=== PATIENT | male | born 1975 | race Caucasian/White ===

== ENCOUNTER 2021-06-21 12:27 | Outpatient (CLI) | payer OTHER, SELFPAY ==
[2021-06-21 14:50] LABS: SARS-CoV-2 RNA PCR Negative (Negative)
== END 2021-06-21 12:28 | disposition home or self-care (01) ==
LOC: CHSLAB 12:34
PROVIDERS: PCP Family Medicine; Visit Provider Family Medicine
DX: J00 Acute nasopharyngitis [common cold] (principal); Z20.822 Contact with and (suspected) exposure to COVID-19
CPT/HCPCS: C9803; U0003; U0005

== ENCOUNTER 2022-08-28 06:32 | Day surgery (SDC) | payer OTHER, SELFPAY ==
[2022-06-21 13:50] VITALS: BMI 32.3
[2022-08-14 14:34] VITALS: BMI 32.1
[2022-08-28 07:07] VITALS: BP 124/94; PULSE 72; RESP 20; TEMP 36.6; O2SAT 98
[2022-08-28] MEDS: LACTATED RINGERS 1,000 ML 150 ML IV CONT (07:23)
--- NOTE | 2022-08-28 07:35 | PM.HPGS ---
History of Present Illness History of Present Illness Consent: Risks, benefits, and alternatives have been discussed and questions answered. Patient agrees to proceed with procedure. Chief complaint: Gerd and Neoplasm Screening Narrative: Irvin Mayen is a 46 year old male Presents for colonoscopy and EGD. Patient has chronic GE reflux disease. Currently on omeprazole 40mg p.o. b.i.d.. Despite this he continues to have symptoms if he does not remain on a diet. He eats too much she sometimes will regurgitate. Occasionally has heartburn with fried foods. Patient presents today for follow-up EGD because of acid reflux with minimal disruption of his diet. Patient denies any dysphagia, no bleeding. No weight loss. Patient also presents for colonoscopy. He states his current weight appetite bowel movements are normal he has never previously had colonoscopy. Family history noncontributory. [facility] Past Medical History Medical History (Updated 05/25/22 @ 09:06 by Mary Denny APN-Thien) Encounter for screening colonoscopy GERD (gastroesophageal reflux disease) Obese Tonsillar and adenoid hypertrophy Surgical History Surgical History (Updated 05/25/22 @ 08:55 by Leoncio Faulkner) H/O cardiac radiofrequency ablation History of knee surgery Social History Social History Smoking status: Never smoker Alcohol intake: unknown Substance use type: does not use Living arrangements: with family Spiritual care concerns: No Meds Home Medications and Allergies Home Medications Medication Instructions Recorded Confirmed Type omeprazole 40 mg capsule,delayed 40 mg PO BID 05/25/22 08/28/22 History release sodium,potassium,mag sulfates 17.5 See Rx Instructions PO .COMPLEX 06/21/22 08/28/22 Rx gram-3.13 gram-1.6 gram oral soln #354 mL (Suprep Bowel Prep Kit) Allergies Allergy/AdvReac Type Severity Reaction Status Date / Time No Known Allergies Allergy Verified 08/28/22 07:10 Vital Signs Vital Signs - 24 hr 08/28/22 07:07 Temperature 97.9 F Pulse Rate 72 Respiratory Rate 20 Blood Pressure 124/94 H Pulse Oximetry 98 Oxygen Delivery Room Air Exam Narrative: Physical exam reveals patient to be alert. Vital signs stable. HEENT exam is unremarkable. Patient is anicteric. Lungs are clear to auscultation and percussion. Heart is without murmur or extra sounds. Abdomen bowel sounds present soft nontender with no organomegaly. Digital external rectal exam normal. Assessment and Plan Assessment and plan (1) GERD (gastroesophageal reflux disease): Code(s): K21.9 - Gastro-esophageal reflux disease without esophagitis Status: Acute Assessment and Plan: Patient with chronic GE reflux disease. Patient notices symptoms occurred despite being on medications if he strays from his diet. Plan to continue strict anti-reflux measures continuing omeprazole 40mg p.o. b.i.d.. An EGD will be performed. We had a discussion regarding possible anti-reflux surgery if symptoms persist. Further recommendations may be given after endoscopy. (2) Encounter for screening colonoscopy: Code(s): Z12.11 - Encounter for screening for malignant neoplasm of colon Status: Acute Assessment and Plan: Patient presents for neoplasia screening colonoscopy. Appears to be at average risk for colon polyps. Further recommendations may be given after endoscopy.
--- NOTE | 2022-08-28 07:41 | WPDANESEPPF ---
Anes - Initial Pre Proc Eval Procedure: Operation Date: 08/28/22 08:30 Proposed Procedures p Esophagogastroduodenoscopy - Rasta Crain MD s Screening Colonoscopy - Rasta Crain MD Date/Time: 08/28/22 07:41 Surgeon: Rasta Crain MD Pre Op Diagnosis: Gerd and Neoplasm Screening Patient Data Age: 46 Gender: M Height: 1.8 m Weight: 103 kg Last Vital Signs Temp 36.6 C 08/28/22 07:07 Pulse 72 08/28/22 07:07 Resp 20 08/28/22 07:07 BP 124/94 H 08/28/22 07:07 Pulse Ox 98 08/28/22 07:07 O2 Del Method Room Air 08/28/22 07:07 Allergies Allergy/AdvReac Type Severity Reaction Status Date / Time No Known Allergies Allergy Verified 08/28/22 07:10 Home Medications Medication Instructions Recorded Confirmed Type omeprazole 40 mg capsule,delayed 40 mg PO BID 05/25/22 08/28/22 History release sodium,potassium,mag sulfates 17.5 See Rx Instructions PO .COMPLEX 06/21/22 08/28/22 Rx gram-3.13 gram-1.6 gram oral soln #354 mL (Suprep Bowel Prep Kit) Patient hx anesthesia problems: none Family hx anesthesia problems: none Results Review: All pre-operative results and documents have been reviewed as part of the pre-operative evaluation. [facility] Past Medical History Medical History Encounter for screening colonoscopy GERD (gastroesophageal reflux disease) Obese Tonsillar and adenoid hypertrophy Surgical History Surgical History H/O cardiac radiofrequency ablation History of knee surgery Social History Social History Smoking status: Never smoker Alcohol intake: unknown Substance use type: does not use Living arrangements: with family Spiritual care concerns: No Anes - Eval Final PreProcedure Day of Procedure 08/28/22 07:41 Patient weight: obese Heart: regular rate and rhythm Lungs: clear to auscultation Airway: Mallampati scale class II Neurological: alert and oriented Last oral intake: >/= 8 hours ASA classification: II Emergent: no Anesthetic plan: proceed Anesthesia type and monitoring: general GIVS and standard monitoring Results Review: All pre-operative results and documents have been reviewed as part of the pre-operative evaluation. Informed Consent: The patient's anesthetic plan and its attendant risks and benefits were discussed with the patient/family/POA. Questions were solicited and answers provided to the satisfaction of the patient/family/POA.
[2022-08-28 08:44] VITALS: BP 90/59; PULSE 94; RESP 16; O2SAT 95
--- NOTE | 2022-08-28 08:50 | WPDANESPN ---
Anes - Prog Note Post-Op Date/Time: 08/28/22 08:50 Cardiovascular status: normal Respiratory status: normal Airway patency: baseline Mental status: baseline Post-Op hydration status: normal Vital Signs: Last Vital Signs Temp 36.6 C 08/28/22 07:07 Pulse 72 08/28/22 07:07 Resp 20 08/28/22 07:07 BP 124/94 H 08/28/22 07:07 Pulse Ox 98 08/28/22 07:07 O2 Del Method Room Air 08/28/22 07:07 Pain Score (VAS): 0/10 I/O: Intake & Output 08/27/22 08/28/22 08/28/22 23:59 07:59 15:59 Intake Total 600 Balance 600 Patient Feedback: Patient satisfied with anesthetic care.
[2022-08-28 08:54] VITALS: BP 122/60; PULSE 83; RESP 16; O2SAT 95
[2022-08-28 09:04] VITALS: BP 101/63; PULSE 82; RESP 18; O2SAT 96
[2022-08-28 09:14] VITALS: BP 106/79; PULSE 75; RESP 18; O2SAT 96
--- NOTE | 2022-08-28 10:03 | SUR.PHASEII ---
0935 pt states he needs a few more mins before getting dressed.
== END 2022-08-28 09:47 | disposition home or self-care (01) ==
PROVIDERS: PCP Family Medicine; Visit Provider Internal Medicine Gastroenterology
PROC: 0DJ08ZZ Inspection of Upper Intestinal Tract, Via Natural or Artificial Opening Endoscopic (ICD-10-PCS; CPT 43235; principal; 2022-08-28 08:30)
PROC: 0DJD8ZZ Inspection of Lower Intestinal Tract, Via Natural or Artificial Opening Endoscopic (ICD-10-PCS; CPT 45378; 2022-08-28 08:30)
DX: Z12.11 Encounter for screening for malignant neoplasm of colon (principal)
CPT/HCPCS: 45385; 43239

== ENCOUNTER 2022-08-28 07:00 | Outpatient (NON) | payer OTHER, SELFPAY | END 2022-08-28 07:01 | disposition home or self-care (01) | LOC: ANHLAB 08-29 12:32 | PROVIDERS: PCP Family Medicine; Visit Provider Internal Medicine Gastroenterology | DX: Z12.11 Encounter for screening for malignant neoplasm of colon (principal) | CPT/HCPCS: 88305 ==

== ENCOUNTER 2022-10-24 11:57 | Outpatient (CLI) | payer OTHER, SELFPAY ==
--- NOTE | ~2022-10-24 | XR_ITS ---
Lumbosacral Spine: AP and lateral views Clinical History: Pain Findings: The normal lordotic curve is maintained. The vertebral bodies and posterior elements are i ntact. The intervertebral disc spaces are preserved. The sacroiliac joints are normally outlined. Impression: No significant abnormality. Reviewed, dictated and finalized at [facility]. ING MACHINE OPERATOR Impression: No significant abnormality.
--- NOTE | ~2022-10-24 | XR_ITS ---
AP and lateral views of the sacrum/coccyx CLINICAL HISTORY: Pain FINDINGS: No fracture or dislocation seen. Visualized joint spaces are intact. Soft tissues are unrem arkable. IMPRESSION: No significant abnormality identified. Reviewed, dictated and finalized at [facility]. MODEL
== END 2022-10-24 11:58 | disposition home or self-care (01) ==
LOC: CHSIMG 12:04
PROVIDERS: PCP Family Medicine; Visit Provider Family Medicine
DX: M53.3 Sacrococcygeal disorders, not elsewhere classified (principal); M54.50 Low back pain, unspecified
CPT/HCPCS: 72100; 72220

== ENCOUNTER 2022-12-04 08:51 | Outpatient (CLI) | payer OTHER, SELFPAY ==
--- NOTE | ~2022-12-04 | XR_ITS ---
EXAM: XR thoracic spine 3V DATE: 12/04/2022 09:17 HISTORY: fall times 1 week ago whole back pain prev lower back xray . COMPARISON: Chest x-ray 10/18/2011, x-ray lumbar spine 10/24/2022. FINDINGS: Vertebral body alignment intact. Vertebral body heights preserved. Multilevel disc space n arrowing and marginal osteophytosis including bridging lateral osteophytes. No traumatic malalignment or fracture. Visualized lung parenchyma is clear. IMPRESSION: No acute fracture or traumatic malalignment detected in the thoracic spine. Multilevel de generative disc disease. Reviewed, dictated and finalized at location [facility]. [facility] [employer] IMPRESSION: No acute fracture or traumatic malalignment detected in the thoraci c spine. Multilevel degenerative disc disease.
== END 2022-12-04 08:52 | disposition home or self-care (01) ==
LOC: CHSIMG 08:53
PROVIDERS: PCP Family Medicine; Visit Provider Family Medicine
DX: M54.9 Dorsalgia, unspecified (principal); M51.34 Other intervertebral disc degeneration, thoracic region
CPT/HCPCS: 72072

== ENCOUNTER 2025-02-19 07:43 | Outpatient (CLI) | payer OTHER, SELFPAY ==
--- NOTE | ~2025-02-19 | US_ITS ---
Limited Abdominal Sonogram: Real-time sonographic imaging of the right upper quadrant was performed. Clinical History: Right upper quadrant pain Findings: The liver appears echogenic, with no evidence of mass lesion or bile duct dilatation. Main portal vein demonstrates normal direction of flow. The gallbladder is moderately distended. There is a probable gallbladder fold or small amount of pericholecystic fluid, less likely gallbladder perfor ation. No gallbladder wall thickening. No evidence of stones or sludge. The common bile duct measures 7 mm. The visualized pancreas, aorta, and IVC are unremarkable. Impression: Diffuse fatty infiltration of the liver. Probable gallbladder fold or small amount of pericholecystic fluid. Less likely gallbladder perforati on. No gallbladder wall thickening, cholelithiasis, or gallbladder sludge. Consider MR/MRCP for furth er evaluation as indicated. Reviewed, dictated and finalized at [facility]. Impression: Diffuse fatty infiltration of the liver. Probable gallbladder fold or small amount of pericholecystic fluid. Less likely gallbladder perforation. No gallbladder wall thickening, cholelithiasis, or ga llbladder sludge. Consider MR/MRCP for further evaluation as indicated.
== END 2025-02-19 07:44 | disposition home or self-care (01) ==
LOC: CHSIMG 07:45
PROVIDERS: PCP Family Medicine; Visit Provider Family Medicine
DX: R10.11 Right upper quadrant pain (principal); K76.0 Fatty (change of) liver, not elsewhere classified
CPT/HCPCS: 76705

== ENCOUNTER 2025-03-19 06:44 | Outpatient (CLI) | payer OTHER, SELFPAY ==
--- NOTE | ~2025-03-19 | MR_ITS ---
MRI of the abdomen: Clinical indication: Cholecystitis. Technique: Coronal SSFSE ARC, WATER:coronal LAVA-FLEX, Coronal 2D FIESTA FatSat, Axial SSFSE BH ARC, Axial 3D DualEcho BH, Axial SSFSE-IR, Axial DWI b=500, Axial 2D FIESTA FatSat, pre and dynamic postco ntrast Axial LAVA ARC, postcontrast Coronal In and Opposed phase LAVA FLEX. Following intravenous adm inistration of 20 cc MultiHance gadolinium, T1-weighted fat-sat imaging was performed in the axial an d coronal planes. Findings: Gallbladder unremarkable. The common bile duct is normal in course and caliber. No filling defects are seen within the CBD. No evidence of intrahepatic biliary ductal dilatation. The pancreati c duct is normal in size. There is mild diffuse signal loss in the liver noted as well as images relative to in phase images, c ompatible diffuse fatty infiltration. Spleen, pancreas, adrenals, kidneys appear normal. The aorta an d the paraaortic regions appear normal. Moderate hiatal hernia present. Impression: Unremarkable gallbladder and biliary tree. Diffuse fatty infiltration of liver. Moderate hiatal hernia. Reviewed, dictated and finalized at location [facility]. Impression: Unremarkable gallbladder and biliary tree. Diffuse fatty infiltration of liver. Moderate hiatal hernia.
== END 2025-03-19 06:45 | disposition home or self-care (01) ==
LOC: CHSIMG 06:45
PROVIDERS: PCP Family Medicine; Visit Provider Family Medicine
DX: K81.9 Cholecystitis, unspecified (principal); K44.9 Diaphragmatic hernia without obstruction or gangrene; K76.0 Fatty (change of) liver, not elsewhere classified
CPT/HCPCS: 74183; 76376; A9577

== ENCOUNTER 2025-04-09 09:24 | Outpatient (CLI) | payer OTHER, SELFPAY ==
[2025-04-27 15:21] VITALS: BMI 29.0
--- NOTE | 2025-04-27 15:21 | P.SLEEP_ITS ---
Sleep Study - Home Unattended Date of Study: 04/09/25 Ordering Provider: Jose Haji DO Interpreting Provider: Georgiana Valderrama DO Home Sleep Study Type: Watch PAT Height: 1.8 m Weight: 94.347 kg Body Mass Index: 29.0 Neck Circumference (inches): 17.5 [place]: 5 Reason for Sleep Study Trouble falling and staying asleep Sleep History The patient is a 49-year-old male who had a sleep study ordered by his cardiol ogist for evaluation of sleep apnea. The patient admits to having trouble falling and staying asleep. He denies snoring loudly or experiencing interruptions in breathing while asleep. He does choke or gasp at night. He denies having trouble breathing on his back and denies morning headaches. He denies having a dry or sore mouth/throat in the morning. He does have nocturnal heartburn. He urinates twice throughout the night. He does have difficulty returning to sleep if he wakes up throughout the night. He denies any hypnotic or sedative use and denies feeling anxious about sleep. He does feel tired or sleepy during the day and feels tired in the morning. He denies having the urge to fall asleep during the day but does feel drowsy while driving. He denies sleep paralysis, cataplexy, and hypnagogic/hypnopompic hallucinations. He denies clenching or grinding his teeth. He denies kicking or jerking his legs excessively. He does have a restless feeling in his legs that causes an urge to move them. The restless feeling gets worse with rest but does not get better with activity. It only occurs in the evening or at nighttime and does not cause any distress. He goes to bed at 10:45 p.m. on workdays and at 11:30 p.m. on his days off. It takes him 2 hours to fall asleep. He gets 5.5 hours of sleep on workdays and 7.5 hours of sleep on his days off. His sleep is a little more restorative on days off. He denies taking any planned naps, dream enactment behavior, and sleepwalking. He consumes 1 to 2 cups of a caffeinated beverage per day. He denies tobacco and alcohol use. He denies exercising on a regular basis. [facility] Past Medical History Medical History Fatty liver Diarrhea RUQ pain Obese Encounter for screening colonoscopy GERD (gastroesophageal reflux disease) Tonsillar and adenoid hypertrophy Surgical History Surgical History H/O cardiac radiofrequency ablation History of knee surgery Social History Social History Smoking status: Never smoker Alcohol intake: unknown Substance use type: does not use Living arrangements: with family Spiritual care concerns: No Medications Home Medications ?Medication ?Instructions ?Recorded ?Confirmed ?Type omeprazole 40 mg capsule,delayed 40 mg PO BID 05/25/22 03/16/25 History release metformin 500 mg tablet 500 mg PO DAILY 03/16/25 03/16/25 History Sleep Procedure The sleep study was completed using [employer] a technically adequate device with seven channels: peripheral arterial tone, actigraphy, body position, snore, respiratory movement, pulse oximetry, sleep staging, and heart rate. Prior to using the device, the patient received verbal and written instructions for its application and was provided with the help desk phone number for additional telephonic instruction with 24-hour availability of qualified personnel to answer questions. The study was scored using AASM and CMS guidelines. Sleep Architecture The total recording time is 6 hrs, 17 min. The total sleep time is 4 hrs, 55 min. Sleep latency is 11 minutes. REM latency is 106 minutes. The patient had 10 episodes of waking. Sleep architecture shows 16.2% deep sleep, 62.6% light sleep, and (as % Total Sleep Time) showed NREM (Light 62.6%; Deep 16.2%), and a 21.1% stage REM. The patient spent 14.2% of total sleep time in the supine position. Sleep efficiency was 78.25. Respiratory Analysis The overall AHI (pAHI 4%:) is 2.7. The overall AHI (pAHI 3%:) is 7.7. The central AHI is 0.6. The AHI was 6.2 in NREM and 13.5 in REM sleep. The AHI was 20.3 in Supine and 5.7 in Non-supine sleep. Percent of Justin Waite respirations is 0.0. Oximetry Data The oxygen desaturation index (NAHUM 4%:) is 2.9. The mean saturation is 94%, and the lowest saturation is 87%. Time spent with saturation < 88% is 0.0 minutes. Snoring Profile Snoring average intensity is 42 dB. The patient snored above 45 decibels for 37.7 minutes, 12.8% of sleep time. Cardiac Profile The average pulse rate is 71 beats per minutes. The lowest pulse rate is 54 bpm. The highest pulse rate reported is 101 bpm. Atrial fibrillation was not detected. Premature beats occur <0.1 per minute. Assessment and Plan Assessment and Plan (1) FRANCES (obstructive sleep apnea): Code(s): G47.33 - Obstructive sleep apnea (adult) (pediatric) Status: Acute Assessment and Plan: Per AASM guidelines (3% criteria) the patient had an overall AHI of 7.7 with desaturation down to 87%. This is consistent with mild sleep apnea. Due to the patient's insomnia, he qualifies for treatment. I recommend that the patient be prescribed AutoPAP 5-15 cm H2O, CPAP mask/filters/tubing and heated humidity. A mandibular advancement device is also an acceptable treatment option. This should be used with all episodes of sleep.? Compliance should be reviewed within 31-90 days of starting therapy for usage greater than 4 hours per night greater than 70% of the nights. The patient should be asked about symptoms such as?excessive daytime sleepiness, quality of sleep, decreased nocturia, increased?mental functioning such as memory, mood, and concentration. Per CMS guidelines (4% criteria) the patient had an overall AHI of 2.7 with desaturation down to 87%. This is not consistent with sleep disordered breathing. If his insurance only recognizes the 4% criteria, he does not qualify for treatment. I recommend that the patient have a split study with the use of a hypnotic to ensure we obtain enough sleep data. Data The data obtained during this sleep study is adequate for interpretation. Certification This sleep study has been reviewed by a board certified sleep medicine physician.
== END 2025-04-10 12:25 | disposition home or self-care (01) ==
PROVIDERS: PCP Family Medicine; Visit Provider Internal Medicine Cardiovascular Disease
DX: G47.10 Hypersomnia, unspecified (principal); G47.33 Obstructive sleep apnea (adult) (pediatric)
CPT/HCPCS: 95800

== ENCOUNTER 2025-04-09 09:36 | Outpatient (CLI) | payer OTHER, SELFPAY ==
--- NOTE | ~2025-04-09 | NM_ITS ---
EXAMINATI EXAMINATION: NM_HEPATWE_NM DATE: 04/09/2025 12:10 INDICATION: Right upper quadrant abdominal pain COMPARISON: None. TECHNIQUE: 6.0 mCi Tc-99m mebrofenin (Choletec) was administered intravenously. Scintigraphic images of the abdomen were obtained for one hour. At the 1 hour time point, the patient drank 8 oz Ensure, and imaging was continued for 60 minutes. Gallbladder ejection fraction was calculated by the technol ogist. FINDINGS: There is normal clearance of radiotracer from the blood pool. There is homogeneous tracer u ptake by the liver. Activity progresses to the bowel and gallbladder. The gallbladder ejection fract ion (GBEF) is 36%. Note that with this technique, normal GBEF >= 33%. IMPRESSION: 1. Normal hepatobiliary scan Reviewed, dictated and finalized at location [facility].
--- OUTSIDE RECORDS SUMMARY | 2025-04-09 09:40 | XMS_ITS | Clinical Summary ---
Author Organization [facility] Address [address] [place] [address] Care Team Providers Care Learning And Development Administrator Name Role Phone En Rosales MD Primary Care Provider [phone] Allergies No known active allergies Medications omeprazole (PRILOSEC) 40 MG capsule Take 40 mg by mouth 2 (two) times daily. 08/14/2022 Active oxyCODONE-aceta minophen (PERCOCET) 5-325 MG tabletIndicatio ns:Acute Pain < 3 Day Supply Take 1-2 tablets by mouth every 8 (eight) hours as needed for Pain. Indications: Acute Pain < 3 Day Supply 12 tablet 09/30/2022 Active Active Problems No known active problems Family History Medical History Relation Comments Heart Disease Father Hypertension Father No Known Problems Mother Relation Status Comments Father Mother Alive Social History Tobacco Use Types Packs/Day Years Used Date Smoking Tobacco: Never Smokeless Tobacco: Never Tobacco Cessation:Counseling Given: Not Answered Alcohol Use Standard Drinks/Week Comments Never 0 (1 standard drink = 0.6 oz pur e alcohol) Sex and Gender Information Value Date Recorded Sex Assigned at Not on file Legal Sex Male 7:08 PM CDT Gender Identity Not on file Sexual Orientation Not on file Last Filed Vital Signs Vital Sign Reading Time Taken Comments Blood Pressure 141/94 09/30/2022 11:37 AM JUNIOR PARALEGAL Pulse 89 09/30/2022 11:37 AM JUNIOR PARALEGAL Temperature 36.2 C (97.2 F) 09/30/2022 11:37 AM JUNIOR PARALEGAL Respiratory Rate 18 09/30/2022 11:37 AM JUNIOR PARALEGAL Oxygen Saturation 98% 09/30/2022 11:37 AM JUNIOR PARALEGAL Inhaled Oxygen Concentration - - Weight 111.1 kg (245 lb) 09/30/2022 11:37 AM JUNIOR PARALEGAL Height 180.3 cm (5' 11) 09/30/2022 11:37 AM JUNIOR PARALEGAL Body Mass Index 34.17 09/30/2022 11:37 AM JUNIOR PARALEGAL Plan of Treatment Health Maintenance Due Date Last Done Comments Colorectal Cancer Screening Colonoscopy (10 Years) 1976 Annual Physical 12/11/1979 Hepatitis C 1994 DTaP, Tdap and Td Vaccines ( 1 - Tdap) 12/11/1995 Hepatitis B Vaccines (1 of 3 - 19+ 3-dose series) 12/11/1995 COVID-19 Vaccine (1 - 2023-2 5 season) 2024 Meningococcal B Vaccine Aged Out No l onger eligible based on patient's age to complete this topic Meningococcal Vaccine Aged Out No beata andrea eligible based on patient's age to complete this topic Pneumococcal Vaccine: Pediat rics (0 to 5 Years) and At-Risk Patients (6 to 49 Years) Aged Out No longer eligible b ased on patient's age to complete this topic RSV Immunizations Under 20 Months Aged Out No longer eligible based on patient's age to complete this topic Insurance [employer] Care Teams Learning And Development Administrator Relationship Specialty Start Date End Date En Rosales MD [address] [place] [address] PCP - General FAMILY PRACTICE 09/30/22
== END 2025-04-09 09:37 | disposition home or self-care (01) ==
PROVIDERS: PCP Family Medicine; Visit Provider Nurse Practitioner Family
DX: R10.11 Right upper quadrant pain (principal)
CPT/HCPCS: 78226; A9537

== ENCOUNTER 2025-04-29 07:11 | Outpatient (CLI) | payer OTHER, SELFPAY ==
--- OUTSIDE RECORDS SUMMARY | 2025-04-29 07:16 | XMS_ITS | Clinical Summary ---
Author Organization [facility] Address [address] [place] [address] Care Team Providers Care Circle Edger Name Role Phone En Rosales MD Primary Care Provider [phone] Allergies No known active allergies Medications omeprazole [...] Comments Blood Pressure 141/94 09/30/2022 11:37 AM TRIAL MGR Pulse 89 09/30/2022 11:37 AM TRIAL MGR Temperature 36.2 C (97.2 F) 09/30/2022 11:37 AM TRIAL MGR Respiratory Rate 18 09/30/2022 11:37 AM TRIAL MGR Oxygen Saturation 98% 09/30/2022 11:37 AM TRIAL MGR Inhaled Oxygen Concentration - - Weight 111.1 kg (245 lb) 09/30/2022 11:37 AM TRIAL MGR Height 180.3 cm (5' 11) 09/30/2022 11:37 AM TRIAL MGR Body Mass Index 34.17 09/30/2022 11:37 AM TRIAL MGR Plan of Treatment Health Maintenance Due Date [...] Insurance [employer] Care Teams Circle Edger Relationship Specialty Start Date End Date En Rosales MD [address] [place] [address] PCP - General FAMILY PRACTICE 09/30/22
--- NOTE | 2025-04-29 07:36 | ECHO_ITS ---
Patient Info Name: Irvin Tijerina Age: 49 years : 1975 Gender: Male Ht: 70 in Wt: 211 lbs BSA: 2.20 m2 HR: 79 bpm BP: 141 / 105 mmHg Technical Quality: Good Exam Date: 04/29/2025 8:10 AM Patient Status: O Admit Date: 04/29/2025 Exam Type: CA echo doppler color flow Complete two-dimensional, color flow and Doppler transthoracic echocardiogram is performed. Carder Blankets: Traci Maldonado Attending Provider: Jose Haji DO Summary 1. Complete two-dimensional, color flow and Doppler transthoracic echocardiogram is performed. 2. Left ventricular chamber dimension is normal. 3. Left ventricular systolic function is normal, estimated at 65-70. 4. The left ventricular diastolic function is grade I diastolic dysfunction. 5. E/e' 7 is not elevated. 6. The aortic valve is bicuspid. 7. There is severe aortic valve sclerosis. 8. There is mild aortic valve stenosis with a peak velocity of 330 cm/s, mean gradient of 21 mmHg, and aortic valve area of 1.9 cm2. 9. There is trace mitral valve regurgitation. Left Ventricle E/e' 7 is not elevated. Left ventricular chamber dimension is normal. Left ventricular systolic function is normal, estimated at 65-70. The left ventricular diastolic function is grade I diastolic dysfunction. Right Ventricle Right ventricular chamber dimension is normal. Right ventricular systolic function is normal and with normal TAPSE 2.3 cm. Left Atria Left atrial chamber dimension is normal. Right Atria Right atrial chamber dimension is normal. Aortic Valve The aortic valve is bicuspid. There is severe aortic valve sclerosis. There is mild aortic valve stenosis with a peak velocity of 330 cm/s, mean gradient of 21 mmHg, and aortic valve area of 1.9 cm2. There is no aortic valve regurgitation. Pulmonic Valve There is no pulmonic regurgitation. Mitral Valve There is no mitral valve stenosis. There is trace mitral valve regurgitation. Tricuspid Valve There is no tricuspid valve regurgitation. Pericardium/Pleural There is no pericardial effusion. Inferior Vena Cava Normal inferior vena cava with >50% collapse upon inspiration consistent with normal right atrial pressure, 5 mmHg. Aorta The aortic root size at the sinus of Valsalva is normal. Left Ventricular Outflow Tract Name Value Normal LVOT 2D LVOT Diameter 2.0 cm LVOT Doppler LVOT Peak Velocity 218 cm/s LVOT Peak Gradient 19 mmHg LVOT Mean Gradient 11 mmHg LVOT VTI 52 cm LVOT VTI/AV VTI Ratio 0.6 LVOT Stroke Volume 161 ml LVOT CO 13.5 l/min LVOT CI 6.1 l/min/m2 Pulmonic Valve Name Value Normal RVOT Doppler RVOT Peak Velocity 68 cm/s RVOT Peak Gradient 2 mmHg PV Doppler PV Peak Velocity 96 cm/s PV Peak Gradient 4 mmHg Mitral Valve Name Value Normal MV Diastolic Function MV E Peak Velocity 71 cm/s MV A Peak Velocity 88 cm/s MV E/A 0.8 MV Decel Time (PW) 236 ms MV Annular TDI MV E/e' (Septal) 7.8 MV E/e' (Lateral) 7.4 MV E/e' (Average) 7.6 Tricuspid Valve Name Value Normal Estimated PAP/RSVP RA Pressure 5 mmHg <=5 Aortic Valve Name Value Normal AV Doppler AV Peak Velocity 330 cm/s AV Peak Gradient 37 mmHg AV Mean Gradient 21 mmHg AV VTI 83 cm AV Area (Cont Eq VTI) 1.9 cm2 >=3.0 AV Area (Cont Eq Yovany) 2.0 cm2 AV DI (Yovany) 0.66 AV Regurgitation 2D LVOT Area 3.1 cm2 Ventricles Name Value Normal LV Dimensions 2D/MM IVS Diastolic Thickness (2D) 1.0 cm 0.6-1.0 LVID Diastole (2D) 4.6 cm 4.2-5.8 LVIW Diastolic Thickness (2D) 1.1 cm 0.6-1.0 LVID Systole (2D) 2.7 cm 2.5-4.0 LVOT Diameter 2.0 cm LV Mass (2D Cubed) 165.10 g 88.00-224.00 LV Mass Index (2D Cubed) 75 g/m2 49-115 Relative Wall Thickness (2D) 0.46 <=0.42 LV Fractional Shortening/Ejection Fraction 2D/MM LV Fractional Shortening (2D) 41 % 25-43 LV EF (2D Teichholz) 71 % LV Diastolic Volume (4C MOD) 122 ml LV EF (4C MOD) 64 % LV Diastolic Volume (2C MOD) 113 ml LV EF (2C MOD) 66 % LV Diastolic Volume (BP MOD) 118 ml 62-150 LV Diastolic Volume Index (BP MOD) 54 ml/m2 34-74 LV Systolic Volume (BP MOD) 41 ml 21-61 LV Systolic Volume Index (BP MOD) 19 ml/m2 11-31 LV EF (BP MOD) 65 % 52-72 LV Diastolic Length (4C) 8.2 cm LV Systolic Length (4C) 7.1 cm LV Stroke Volume (4C MOD) 79 ml Atria Name Value Normal LA Dimensions LA Volume (4C A-L) 41 ml LA Volume (BP A-L) 45 ml RA Dimensions RA Systolic Major [place]rose Length (4C) 5.2 cm 2.1-2.7 RA Area (4C) 13.9 cm2 <=18.0 Report Signatures
== END 2025-04-29 07:12 | disposition home or self-care (01) ==
PROVIDERS: PCP Family Medicine; Visit Provider Internal Medicine Cardiovascular Disease
DX: Q23.81 Bicuspid aortic valve (principal); I35.0 Nonrheumatic aortic (valve) stenosis
CPT/HCPCS: 93306